=== PATIENT | female | born 1970 | race Caucasian/White ===

== ENCOUNTER 2023-03-02 14:07 | Outpatient (CLI) | payer BC, SELFPAY ==
--- NOTE | 2023-03-02 14:45 | CRLHL7_ITS ---
For Patients: As a result of the Cures Act, medical imaging exams and procedure reports are released immediately into your electronic medical record. You may view this report before your referring provider. If you have questions, please contact your health care provider. Dictation for this exam included within the brain MRI report from the same date. Dictated by Jonathan Alexander MD @ 03/02/2023 4:33:24 PM (Electronically Signed)
--- NOTE | 2023-03-02 15:30 | CRLHL7_ITS ---
For Patients: As a result of the 21st Century Cures Act, medical imaging exams and procedure reports are released immediately into your electronic medical record. You may view this report before your referring provider. If you have questions, please contact your health care provider. INDICATION: Transient neurologic deficit. TECHNIQUE: Brain MRI with contrast. The following sequences were obtained: Sagittal T1 weighted sequence. DWI and ADC mapping sequences. Axial FLAIR and ROBEL T2 weighted sequences. T1 weighted post-contrast sequences. Magnetic Resonance Angiography of the head and neck with and without contrast. The following sequences were obtained: 3D Time of Flight MRA sequence of the intracranial circulation. 3D Time of Flight and gadolinium bolus MRA sequences of the neck with all measurements are based on NASCET criteria. Maximum Intensity Reconstructions are provided. 20 cc of Dotarem gadolinium based contrast agent was used. COMPARISON: Head CT from 07/19/2013. FINDINGS: MRI head: No evidence of acute ischemia. No evidence of acute or chronic intracranial blood products. No mass or pathologic intracranial enhancement. Scattered FLAIR hyperintensities within the supratentorial white matter, typical for chronic microvascular ischemic change. No hydrocephalus or extra-axial collections. The pituitary gland, parasellar structures and optic chiasm are normal. Posterior fossa is normal. All the major intracranial vascular structures demonstrate normal flow-related signal. The orbital contents are normal. No calvarial or skull base marrow signal abnormality. High-grade mucosal thickening within the left frontal sinus and frontoethmoidal recess. No extracranial soft tissue findings. The orbital contents are normal. No calvarial or skull base marrow signal abnormality. No obstructive sinus disease. No extracranial soft tissue findings. MRA Head: No proximal large vessel occlusion. The anterior cerebral arteries are patent. The middle cerebral arteries are patent. The posterior cerebral arteries are patent. The intradural vertebral arteries and basilar artery are patent. The intracranial internal carotid arteries are patent. No aneurysm or high flow vascular malformation. MRA Neck: There is a 3 vessel configuration of the aortic arch. The brachiocephalic artery is patent. The proximal subclavian arteries are patent. The common carotid arteries are patent. The internal carotid arteries are patent. Advanced stenosis of the origin of the right proximal external carotid artery trunk. The cervical vertebral arteries are patent. No abnormal dilatation of the major cervical arteries. IMPRESSION: MRI Head: 1. No acute ischemia or other acute intracranial pathology. 2. No mass or pathologic intracranial enhancement. 3. Minimal chronic microvascular ischemic changes within the supratentorial white matter. MRA Head: 1. No proximal large vessel occlusion or flow limiting stenosis involving the major intracranial arteries. MRA Neck: 1. Advanced stenosis of the right proximal external carotid artery trunk. Otherwise, no flow-limiting stenosis involving the major cervical arteries. No evidence of dissection. Dictated by Jonathan Alexander MD @ 03/02/2023 4:32:54 PM (Electronically Signed)
--- NOTE | 2023-03-02 15:30 | CRLHL7_ITS ---
For Patients: As a result of the Cures Act, medical imaging exams and procedure reports are released immediately into your electronic medical record. You may view this report before your referring provider. If you have questions, please contact your health care provider. Dictation for this exam included within the brain MRI report from the same date. Dictated by Jonathan Alexander MD @ 03/02/2023 4:33:51 PM (Electronically Signed)
== END 2023-03-02 14:08 | disposition home or self-care (01) ==
LOC: MRI 14:10
PROVIDERS: PCP Family Medicine; Visit Provider Family Medicine
DX: G43.909 Migraine, unspecified, not intractable, without status migrainosus (principal); I67.82 Cerebral ischemia; R09.89 Other specified symptoms and signs involving the circulatory and respiratory systems; R29.818 Other symptoms and signs involving the nervous system; I65.21 Occlusion and stenosis of right carotid artery
CPT/HCPCS: 70544; 70549; 70553; A9575